=== PATIENT | male | born 1975 | race Caucasian/White ===

== ENCOUNTER 2023-12-25 05:25 | Emergency (ER) | payer MEDICAID, OTHER ==
[~2023-12-25] VITALS: Ht 167.6 cm; Wt 91.0 kg
[2023-12-25 05:52] VITALS: BP 0/0; PULSE 0; RESP 0; O2SAT 0
[2023-12-25] MEDS ORDERED: TRANEXAMIC ACID 1000MG PREMIX 100 ML IV NR (06:00)
[2023-12-25] MEDS ORDERED: TRANEXAMIC ACID 1,000 MG in SODIUM CHLORIDE 0.9% 100 ML IV ONE (06:00)
== END 2023-12-25 05:49 ==
LOC: EDBD 05:25 → ER 05:25
DX: S21.231A Puncture wound without foreign body of right back wall of thorax without penetration into thoracic cavity, initial encounter (principal); W34.09XA Accidental discharge from other specified firearms, initial encounter; Y93.89 Activity, other specified; Y92.89 Other specified places as the place of occurrence of the external cause; Y99.8 Other external cause status
CPT/HCPCS: 82962; 86920; 36415; 31500; 99291; Z7610; 36430; J7050; P9016